=== PATIENT | male | born 1975 | race Caucasian/White ===

== ENCOUNTER 2018-08-15 11:42 | Emergency (ER) | payer OTHER | END 2018-08-15 12:55 | disposition home or self-care (01) | LOC: FTE 11:42 | DX: S16.1XXA Strain of muscle, fascia and tendon at neck level, initial encounter (principal); X58.XXXA Exposure to other specified factors, initial encounter; Y92.9 Unspecified place or not applicable | CPT/HCPCS: 99282; Z7502 ==